=== PATIENT | female | born 1945 | race Two or more races ===

== ENCOUNTER 2016-08-19 22:51 | Emergency (ER) | payer OTHER ==
[~2016-08-19] VITALS: Ht 154.9 cm; Wt 59.0 kg
--- NOTE | 2016-08-20 | NUR ---
PT BIB [facility] WITH A C/O GLF. PT IS C/O LEFT SIDED FACE PAIN AND LEFT KNEE PAIN.
--- NOTE | 2016-08-20 00:20 | NUR ---
PT LEFT FOR CT.
--- NOTE | 2016-08-20 00:47 | NUR ---
PT RETURNED FROM CT.
--- NOTE | 2016-08-20 01:00 | NUR ---
IV STARTED BLOOD DRAWN .
[2016-08-20 01:10] LABS: BASOPHILS # (AUTO) 0.1 /CMM (0.0-0.2); BASOPHILS % (AUTO) 0.5 % (0.0-2.0); EOSINOPHILS # (AUTO) 0.3 /CMM (0.0-0.7); EOSINOPHILS % (AUTO) 2.4 % (0.0-6.0); HEMATOCRIT 42 % (33-45); HEMOGLOBIN 14.4 g/dL (11.5-14.8); LYMPHOCYTES # (AUTO) 2.1 /CMM (0.8-4.8); MEAN CORPUSCULAR HEMOGLOBIN 34 PG (26.0-33.0); MEAN CORPUSCULAR HGB CONC 34 g/dl (31.0-36.0); MEAN CORPUSCULAR VOLUME 98 fL (82-100); MONOCYTES # (AUTO) 0.6 /CMM (0.1-1.30); MONOCYTES % (AUTO) 5.7 % (2.0-12.0); NEUTROPHILS # (AUTO) 7.4 /CMM (1.8-8.9); NEUTROPHILS % (AUTO) 71.4 % (43.0-81.0); PLATELET COUNT (AUTO) 320 /CMM (150-450); RDW COEFFICIENT OF VARIATION 13.7 (11.5-15.0); RED BLOOD CELL COUNT(AUTO) 4.29 MIL/uL (4.0-5.2); WHITE BLOOD COUNT (AUTO) 10.3 K/uL (4.3-11.0)
[2016-08-20 01:23] LABS: CALCIUM, SERUM 9.2 mg/dL (8.5-10.1); CARBON DIOXIDE 31 mmol/L (21-32); CHLORIDE 107 mmol/L (98-107); CREATININE 0.8 mg/dL (0.6-1.3); GLUCOSE 86 mg/dL (74-106); POTASSIUM 3.9 mmol/L (3.5-5.1); SODIUM SERUM 144 mmol/L (136-145); UREA NITROGEN, BLOOD 19 mg/dL (7-18)
[2016-08-20 01:30] LABS: INR 0.92 (0.87-1.13); PROTHROMBIN TIME 9.8 SECS (9.5-12.7)
[2016-08-20 01:33] LABS: TROPONIN I < 0.017 ng/mL (0.00-0.056)
--- NOTE | 2016-08-20 01:45 | NUR ---
PT APPEARS TO BE RESTING COMFORTABLY WITH NO S/S OF PAIN OR DISTRESS.
--- NOTE | 2016-08-20 03:00 | NUR ---
PT APPEARS TO BE SLEEPING SOUNDLY WITH NO S/S OF PAIN OR DISTRESS.
--- NOTE | 2016-08-20 04:33 | NUR ---
IV removed. Catheter intact and site benign. Pressure and 4x4 applied to site. No bleeding noted.Patient discharged to home in stable condition. Written and verbal after care instructions given. Patient verbalizes understanding of instruction. PT LEFT BY AMBULANCE SENT BY [facility]. [facility]
[2016-08-20 04:36] VITALS: BP 149/77
== END 2016-08-20 04:36 | disposition home or self-care (01) ==
LOC: ER 22:53
DX: S09.90XA Unspecified injury of head, initial encounter (principal); S00.83XA Contusion of other part of head, initial encounter; S70.02XA Contusion of left hip, initial encounter; I10 Essential (primary) hypertension; E11.9 Type 2 diabetes mellitus without complications; Z98.890 Other specified postprocedural states; W20.8XXA Other cause of strike by thrown, projected or falling object, initial encounter; Y93.89 Activity, other specified; Y92.89 Other specified places as the place of occurrence of the external cause; Y99.9 Unspecified external cause status
CPT/HCPCS: 36415; 70450-TC; 72125-TC; 73502; 80048-TC; 84484-TC; 85025-TC; 85730-TC; A4606; Z7610